=== PATIENT | male | born 1990 | race Caucasian/White ===

== ENCOUNTER → 2025-01-17 | Outpatient (CLI) | payer OTHER, BC, SELFPAY ==
--- NOTE | 2025-01-17 | XR_ITS ---
Examination: Thoracic spine 3 views Technique one AP lateral coned lateral upper dorsal spine 3 views Date and time: January 17, 2025 0802 hours INDICATIONS: Back pain beginning 2 years ago. FINDINGS: Adequate alignment thoracic vertebral bodies No thoracic fracture No significant arthritic change. Intact pedicles IMPRESSION: No thoracic fracture No significant arthritic change
--- NOTE | 2025-01-17 | XR_ITS ---
Examination: Lumbar spine, 5 views Technique: Lumbar spine AP, lateral, coned lateral lower lumbar spine, bilateral obliques 5 views Exam date and time: January 17, 2025 0800 hours Comparison August 16, 2019 INDICATIONS: Back pain beginning 2 years ago. FINDINGS: Adequate alignment lumbar vertebral bodies No lumbar fracture. Moderate disc narrowing posteriorly L5-S1 No spondylolisthesis Mild lumbar spondylosis IMPRESSION: Moderate disc narrowing posteriorly L5-S1
[2025-01-17 09:15] LABS: Basophils # (Auto) 0.1 Thou/mm3 (0.0-0.2); Basophils % (Auto) 1 % (0-2.5); Eosinophils # (Auto) 0.1 Thou/mm3 (0.0-0.5); Eosinophils % (Auto) 3 % (0-10); Hematocrit 45.7 % (41.0-53.0); Hemoglobin 15.3 g/dL (13.5-16.0); Immature Granulocytes Auto 0.01 Thou/mm3 (0.00-0.00); Lymphocytes # (Auto) 1.2 Thou/mm3 (1.0-4.8); Lymphocytes % (Auto) 25 % (10-50); Mean Corpuscular HGB Conc 33.5 g/dl (31.0-37.0); Mean Corpuscular Hemoglobin 28.6 pg (25.0-35.0); Mean Corpuscular Volume 85 fL (80-100); Monocytes # (Auto) 0.5 Thou/mm3 (0.0-0.8); Monocytes % (Auto) 10 % (0-12); Neutrophils # (Auto) 3.0 Thou/mm3 (1.8-7.7); Neutrophils % (Auto) 61 % (37-80); Nucleated Red Blood Cell # 0.00 Thou/mm3 (0.00-0.00); Nucleated Red Blood Cell % 0 /100 WBC (0); Platelet Count 251 Thou/mm3 (140-440); RDW Standard Deviation 41.2 fL (35.1-43.9); Red Blood Count 5.35 Miln/mm3 (4.50-5.90); White Blood Count 5.0 Thou/mm3 (3.8-10.6)
[2025-01-17 09:27] LABS: Glucose Estimated Average 108 mg/dL (80-131); Hemoglobin A1C 5.4 % Hgb (4.8-6.0)
[2025-01-17 09:37] LABS: T4 (Thyroxine) 8.0 mcg/dL (4.5-10.9)
[2025-01-17 09:43] LABS: C-Reactive Protein < 0.5 mg/dL (0.0-0.9); Cardiac Risk Estimate 4.7 RATIO (4.0-6.7); Cholesterol 222 mg/dL (132-200); HDL Cholesterol 47 mg/dL (40-60); LDL Cholesterol,Calculated 153 mg/dL (0-130); Thyroid Stimulating Hormone 1.20 uIU/mL (0.55-4.78); Triglycerides 112 mg/dL (30-150)
[2025-01-17 10:48] LABS: Sed Rate (ESR) 3 mm/hr (0-15)
== END | disposition home or self-care (01) ==
LOC: CDIM 07:26
PROVIDERS: PCP Family Medicine; Referring Provider Nurse Practitioner Family; Visit Provider Nurse Practitioner Family
DX: M54.89 Other dorsalgia (principal); M48.07 Spinal stenosis, lumbosacral region; M54.6 Pain in thoracic spine; M54.50 Low back pain, unspecified; R53.83 Other fatigue; Z82.49 Family history of ischemic heart disease and other diseases of the circulatory system
CPT/HCPCS: 36415; 72072; 72110; 80061; 83036; 84436; 84443; 85025; 85652; 86140